=== PATIENT | female | born 1990 | race Caucasian/White ===

== ENCOUNTER 2016-11-27 23:54 | Observation (INO) | payer MEDICAID ==
[~2016-11-27] VITALS: Ht 157.5 cm; Wt 103.6 kg
[~2016-11-27 23:54] MED LIST: BUPIVACA/EPI 0.25% PF 30ML NERVEBLOCK ONE; DILAUDID 1 MG/ML AMP ONE; ESMOLOL 100 MG/10 ML VL ONE; FENTANYL 100 MCG/2 ML AMP ONE; GLYCOPYRROLATE 0.2 MG/ML VIAL ONE; LIDOCAINE 2% JELLY 30 ML TOPICAL ONE; MIDAZOLAM 2 MG/2 ML INJ ONE; NEOSTIGMINE 10 MG/10 ML VIAL ONE; ONDANSETRON 4 MG VIAL ONE; PROPOFOL 20 ML VIAL IV ONE; ROCURONIUM 50 MG VIAL IV ONE; SUCCINYLCHOLINE 20 MG/ML VL ONE
[2016-11-28] VITALS (19 sets, daily range): BP systolic 101–142; RESP 14–20; TEMP 97–98.7; Ht 157.5 cm; Wt 103.6 kg
[2016-11-28] MEDS ORDERED: ONDANSETRON 4 MG VIAL ONE (02:45)
[2016-11-28] MEDS ORDERED: PIPER/TAZO 3.375 GM PYXIS ONE (02:45)
[2016-11-28] MEDS ORDERED: DILAUDID 1 MG/ML AMP ONE (02:46)
[2016-11-28] MEDS ORDERED: SODIUM CHLORIDE 0.9% 100 ML IV ONE (02:46)
[2016-11-28] MEDS ORDERED: DEXTROSE 5% SALINE 0.45% 1,000 ML IV SCH (03:00)
[2016-11-28] MEDS ORDERED: ONDANSETRON 4 MG VIAL IV PUSH PRN (03:00)
[2016-11-28] MEDS ORDERED: DILAUDID 1 MG/ML AMP IV PRN (03:00)
[2016-11-28] MEDS ORDERED: MISSING DOSE XX ONE (04:50)
[2016-11-28] MEDS: PIPERACIL/TAZO 3.375GM/50ML 50 ML IV SCH ×2 (05:31→11:05)
[2016-11-28] MEDS ORDERED: PROMETHAZINE 25 MG/ML VIAL IV ONE (06:35)
[2016-11-28] MEDS ORDERED: MORPHINE 4 MG/ML SYR IV PRN (07:30)
[2016-11-28] MEDS ORDERED: OXYCODONE 5 MG TAB PO PRN (07:30)
[2016-11-28] MEDS ORDERED: ONDANSETRON 4 MG VIAL IV PRN ×2 (07:30→08:15)
[2016-11-28] MEDS ORDERED: MORPHINE 2 MG/ML SYR IV PRN ×2 (07:30→08:15)
[2016-11-28] MEDS ORDERED: MEPERIDINE 25 MG/ML IV PRN (07:30)
[2016-11-28] MEDS ORDERED: SALINE FLUSH 10 ML FLUSH PRN (08:15)
[2016-11-28] MEDS: DILAUDID 1 MG/ML AMP IV PRN ×4 (08:34→08:57)
[2016-11-28] MEDS ORDERED: SALINE FLUSH 10 ML FLUSH SCH (20:00)
[2016-11-29] MEDS ORDERED: SODIUM CHLORIDE 0.9% FLUSH BAG 500 ML IV SCH (06:00)
== END 2016-11-28 08:11 | disposition home or self-care (01) ==
LOC: ENRESERVDT → ENRESERVTM → ER 23:54 → EMR 23:55 → 5THE 11-28 04:21
PROVIDERS: ADMIT Surgery; ATTEND Surgery
DX: K81.0 Acute cholecystitis (principal); F17.210 Nicotine dependence, cigarettes, uncomplicated
CPT/HCPCS: 36415; 76705; 80053; 81001; 83690; 84703; 85025; 86677; 88304; 96365; 96375